=== PATIENT | male | born 1980 | race Caucasian/White ===

== ENCOUNTER 2021-09-02 11:31 | Emergency (ER) | payer OTHER ==
[~2021-09-02] VITALS: Ht 167.6 cm; Wt 84.8 kg
[2021-09-02 11:32] VITALS: BP 132/74
[2021-09-02] MEDS ORDERED: METH-1164 PO (11:47)
[2021-09-02] MEDS ORDERED: PRED20TA PO (14:53)
[2021-09-02] MEDS ORDERED: CYCL5TAB PO (14:53)
== END 2021-09-02 15:10 | disposition home or self-care (01) ==
LOC: M ED 11:31
DX: S33.5XXA Sprain of ligaments of lumbar spine, initial encounter (principal); Y92.9 Unspecified place or not applicable; Y93.B3 Activity, free weights; Y99.9 Unspecified external cause status; Z79.899 Other long term (current) drug therapy